=== PATIENT | female | born 1990 | race Caucasian/White ===

== ENCOUNTER 2017-06-23 10:53 | Outpatient (CLI) | payer OTHER ==
[~2017-06-23 10:53] MED LIST: BUPIVACAINE HCL/EPINEPHRINE/PF 0.25% VIAL IM ONE; Lidocaine 1% 5ml(IM or SUTURE)(PAIN CLINIC) ONE; MIDAZOLAM HCL 2 MG/2 ML VIAL ONE; NORMAL SALINE 500 ML IV.SOLN IV ONE; ONDANSETRON HCL/PF 4 MG/ 2ML VIAL ONE; SALINE FLUSH 10 ML DISP.SYRIN IVF ONE; TRIAMCINOLONE ACETONID 40MG/ML VIAL ONE; fentaNYL CITRATE/PF 100 MCG/ 2ML AMP ONE
--- NOTE | 2017-06-25 09:36 | HISTORY AND PHYSICAL REPORT ---
REFERRING PHYSICIAN: Dr. Nathanael Eaton [place]: HISTORY OF PRESENT ILLNESS: I had the opportunity of seeing Silvestre Benavides today as an outpatient at [facility]. Silvestre is a delightful 26-year-old white female who presents with severe and significant axial back pain. Her history began in 2015 after having several lumbar punctures for workup for a headache done at [place]. She said that she was having students and residents perform the lumbar punctures and after that she began noticing back pain and spasms. She denies leg pain. She denies symptoms of neurogenic claudication. She has intermittent shooting pains in the legs which are not activity related. She says if she leans forward or back in a chair, her back hurts enough to bring tears to her eyes. 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 PAST MEDICAL HISTORY: 1. Vision problems including enlarged optic nerve of idiopathic origin and hydrocephalus. 2. Hypertension. 3. Urinary incontinence. 4. Seizure. 5. Depression. 6. Anxiety. 7. Frequent headaches. 8. PTSD. 9. Intracranial hypertension, pseudotumor cerebri. PAST SURGICAL HISTORY: 1. In January of 2016, she had optic nerve surgery on the right eye. 2. She had a OPERATOR/ASSISTANT [employer]EM[employer] shunt placed. 3. In June of 2016, she had OPERATOR/[employer]SI[employer]EM[employer] replacement. 4. In May of 2017, she had her wisdom teeth removed. All of these procedures were done at [facility] in [place]. CURRENT MEDICATIONS: Albuterol inhaler twice daily. ALLERGIES: 1. Latex. 2. Coconut. 3. Tegaderm. SOCIAL HISTORY: Patient is . She does not have any children. She was in the . She went to school through college. She is not currently employed. She has been disabled since 2013 from the . FAMILY HISTORY: Positive for diabetes in patient's mother and father. She currently smokes one -half to 1 pack of cigarettes per day. She drinks approximately 4 times per month. Reports occasional marijuana use. REVIEW OF SYSTEMS: Positive for night sweats, urinary incontinence, shortness of breath, cough, bowel incontinence, depression, anxiety, and headaches. PHYSICAL EXAMINATION: General: This is a well-nourished, well-developed 26-year-old white female in no apparent distress. Vital Signs: BP: 110/70, P: 74, R: 20, oxygen saturation is 99% on room air. HEENT: Pupils are equal, round, and reactive to light and accommodation. Extraocular movements intact. No facial droop. Neck: There is full range of motion of the cervical spine. No evidence of adenopathy. Thyroid is nontender, no enlarged. Carotids are without bruits. Chest: Clear to auscultation bilaterally. Normal chest excursion. Heart: Regular rate and rhythm without murmur. Abdomen: Benign. Normoactive bowel sounds. Motor/sensory: Intact in the upper and lower extremities. Moves all extremities freely. Back: There is positive assisted extension and extension rotation finding, otherwise, strength is 5/5 and equal in lower extremities. Negative straight leg raise. Negative femoral nerve stretch. Negative LESLYE. Dorsiflexion and plantar flexion of the feet are intact. DIAGNOSTIC STUDIES: MRI indicates multi-level mild spondylolytic changes throughout the lumbar spine , most severe at L3-L4, L4-L5, and L5-S1. ASSESSMENT: 1. Multi-level mild spondylolytic changes throughout the lumbar spine, most severe at L3-L4, L4-L5. 2. L5-S1 spondylolisthesis, which is grade 1, with disk protrusion right paracentral associated with an annular tear. PLAN: I think this nice young lady is having primarily spondylolytic back pain and I have described facet medial branch blocks today and possible radiofrequency neurolysis. Otherwise, she does have a disk protrusion at L5-S1 but her symptoms do not seem to fit discogenic low back pain. Plan today for bilateral facet medial branch blocks with IV sedation. cc: Dr. Nathanael ZAMARRIPA
--- NOTE | 2017-06-25 10:19 | LUMBAR FACET MBB ---
OPERATIVE PROCEDURE: Bilateral L3, L4, L5, and sacral ala facet medial nerve branch blocks with IV sedation and fluoroscopic guidance. DESCRIPTION OF PROCEDURE: The risks and benefits of the procedure were explained to the patient including the risk of infection, bleeding, and nerve injury. In addition, the risk of steroid exposure causing hyperglycemia, hypertension, osteoporosis, or increased infectious risks were explained to the patient. The patient understood these risks and agreed to proceed. The patient was positioned prone on the fluoroscopic procedure table and sterile prep and drape were applied. Under AP, oblique, and lateral fluoroscopic imaging, the L3 vertebral body transverse process were identified on the left side. A number 23-gauge spinal needle was placed obliquely to the interspace of the left L3 transverse process and the superior articular process. It was placed at the level of the L3 facet medial nerve branch. There was negative aspiration of blood or CSF and after that the medications were placed. The stylet was replaced in the needle and the needle was subsequently removed from the back. In this exact same fashion, the right L3, bilateral L4, bilateral L5, and bilateral sacral ala were each injected with medication. At the conclusion of the procedure, the patient reported near 100% relief in back pain. I have dispensed a diary. The back was cleaned and a bandage was applied over the injection sites. The patient tolerated the procedure without complications. The patient was monitored for 20 minutes following the procedure during which time the patient experienced no adverse sequelae. The patient was discharged to home in good condition. ASSESSMENT: Lumbar facet medial branch blocks: Lumbar facet arthropathy, 721.3 PLAN: Bilateral L3, L4, L5, and sacral ala facet medial nerve branch blocks with IV sedation and fluoroscopic guidance. FOLLOWUP: I will follow her up in the next month and consider radiofrequency neurolysis. cc: Dr. Nathanael ZAMARRIPA
== END 2017-06-23 11:30 ==
LOC: OUT 10:53
PROVIDERS: ATTEND Anesthesiology Pain Medicine
DX: M43.16 Spondylolisthesis, lumbar region (principal)
CPT/HCPCS: 81025; 99149; J2250; J2405; J3010; J3301; J7060; 64493; 64494; 64495; 99213; S1016

== ENCOUNTER 2017-07-21 08:35 | Outpatient (CLI) | payer OTHER ==
[~2017-07-21 08:35] MED LIST changes: -BUPIVACAINE HCL/EPINEPHRINE/PF 0.25% VIAL IM ONE; +BUPIVACAINE HCL/PF 2.5 MG/ML 10ML VIAL IV ONE; -NORMAL SALINE 500 ML IV.SOLN IV ONE; -ONDANSETRON HCL/PF 4 MG/ 2ML VIAL ONE
--- NOTE | 2017-07-21 14:15 | GENERIC FACET RF ---
SUBJECTIVE: Silvestre follows up having complete 100% immediate local anesthetic-induced relief of her facet pain at L3, L4, L5, and sacral ala bilaterally. Plan today for a radiofrequency neurolysis as her symptoms have returned. We will plan on performing a bilateral neurolysis of L5 and the sacral ala. She may require the upper levels to be neurolyzed at a later date. PROCEDURE: Bilateral L5 and sacral ala lumbar facet radiofrequency neurolyses with fluoroscopic guidance (neurolyses of 4 medial nerve branches). DESCRIPTION OF PROCEDURE: The risks and benefits of the procedure were explained to the patient including the risk of infection, bleeding and unintended nerve injury, including the risk of radicular motor or sensory nerve injury and increased pain following the procedure. In addition, the risk of steroid exposure causing hyperglycemia, hypertension, osteoporosis, and increased infectious risks were explained to the patient. The patient understood these risks and agreed to proceed. The patient was placed in the prone position on the fluoroscopy table. The low back was cleaned and sterile drapes were applied. AP, lateral and oblique fluoroscopic views were obtained of the lumbar spine. An oblique fluoroscopic view was obtained of the L5 lumbar vertebral body and transverse process. A 10 centimeter RFK introducer needle with a 10 mm active tip was advanced under direct fluoroscopic guidance until the tip of the introducer needle was located parallel to the medial branch of the posterior nerve root supplying the facet joint. This location was at the junction of the left transverse process of L5 superior articulating process. It was verified that there was no aspiration of CSF or blood from the needle tip. AP and lateral fluoroscopic views were obtained to verify the position of the needle as located at the junction of the transverse process and superior articulating process and to verify that the needle tip was not located within the epidural or intrathecal space. A 10 centimeter RFK radiofrequency probe was then introduced via the introducer needle and a 2 Hz stimulus was effected, gradually increasing the voltage to 2.5 volts, to verify that there was no motor neuron activation causing significant muscle contraction in the lower extremity or back. The probe was then removed from the introducer needle. The medications were then injected through the introducer needle. The probe was reintroduced into the needle. A radiofrequency lesion was then effected at a temperature of 80 degrees for a period of 60 seconds. The needle was then rotated 180 degrees and withdrawn approximately 3 mm and a second lesion was effected for a period of 60 seconds at a temperature of 80 degrees C. The stylet was replaced in the introducer needle and the introducer was removed from the back. This exact procedure was repeated at the following levels: Right L5 and bilateral sacral ala (for a total of 4 medial branch neurolyses). Bandages were applied over the injection sites. The patient was monitored for 20 minutes following the injection, during which time the patient experienced no adverse sequelae. The patient was discharge home in good condition with a lokie driver driving the patient home. ASSESSMENT: Lumbar spondylosis/facet arthropathy. FOLLOWUP: Return to clinic if problems develop or worsen. cc: Dr. Nathanael ZAMARRIPA
== END 2017-07-21 08:36 ==
LOC: OUT 08:35
PROVIDERS: ATTEND Anesthesiology Pain Medicine
DX: M47.816 Spondylosis without myelopathy or radiculopathy, lumbar region (principal); M12.9 Arthropathy, unspecified
CPT/HCPCS: 81025; 99149; J2250; J3010; J3301; J3490; Q9966; 64635; 64636; S1016

== ENCOUNTER 2017-09-30 08:55 | Outpatient (CLI) | payer OTHER ==
--- NOTE | 2017-09-30 15:34 | PAIN CLINIC PROGRESS NOTES ---
REASON FOR VISIT: I had the opportunity of seeing Silvestre Benavides today in follow up. This is a very nice 26-year-old white female with lumbar spondylosis who had complete 100 % relief with bilateral L3, L4, L5, and sacral ala radiofrequency neurolysis. She presented in follow up 2 months ago and I performed a bilateral L5 and sacral ala radiofrequency neurolysis and she has done very well. She says the majority of the lumbosacral back pain has resolved; however, she is still complaining of a site, primarily right greater than left, above the area of the radiofrequency neurolysis at the L3-L4 level. I have told that I think that this is the L3-L4 facet joints and I would recommend a radiofrequency neurolysis at those levels since she had 100% improvement with the previous local anesthetic diagnostic injection. ASSESSMENT: Lumbar spondylosis with good response to facet medial branch block and radiofrequency neurolysis. PLAN: At this point, we will seek approval for bilateral L3-L4 radiofrequency neurolysis. cc: Dr. Nathanael ZAMARRIPA
== END 2017-09-30 08:56 ==
LOC: OUT 08:55
PROVIDERS: ATTEND Anesthesiology Pain Medicine
DX: M47.896 Other spondylosis, lumbar region (principal)
CPT/HCPCS: 99213; G0463